=== PATIENT | male | born 1940 | race Caucasian/White ===

== ENCOUNTER → 2017-07-19 | Outpatient (CLI) | payer BC ==
[~2017-07-19] MED LIST: ASPI-515 PO; CARV-39 PO; CARV12.52 PO; CHOL100011 PO; CLOP75TA PO; DILT30TA33 PO; FENO54TA17 PO; HYDR-3307 PO; ISOS20TA3 PO; ISOS30TA8 PO; LOVA40TA2 PO; NITR0.4T SL
== END | disposition home or self-care (01) ==
LOC: CFH 14:20
PROVIDERS: ATTEND Internal Medicine Nephrology
DX: Z02.9 Encounter for administrative examinations, unspecified (principal)

== ENCOUNTER 2018-10-08 10:21 | Inpatient (IN) | payer BC ==
[~2018-10-08] VITALS: Ht 180.3 cm; Wt 79.6 kg
[2018-10-08 11:52] LABS: BASOPHILS # (AUTO) 0.02 x10^3/uL (0-0.1); BASOPHILS % (AUTO) 0 % (0-1); EOSINOPHILS # (AUTO) 0.08 x10^3/uL (0-0.4); EOSINOPHILS % (AUTO) 1 % (1-7); LYMPHOCYTES # (AUTO) 1.12 x10^3/uL (1-3.4); LYMPHOCYTES % (AUTO) 13 % (22-44); MD NO; MEAN CORPUSCULAR HEMOGLOBIN 31.2 pg (27.5-34.5); MEAN CORPUSCULAR HGB CONC 33.6 g/dL (33.2-36.2); MEAN CORPUSCULAR VOLUME 92.7 fL (81-97); MEAN PLATELET VOLUME 8.5 fL (7.4-10.4); MONOCYTES # (AUTO) 0.65 x10^3/uL (0.2-0.8); MONOCYTES % (AUTO) 8 % (2-9); NEUTROPHILS # (AUTO) 6.77 x10^3/uL (1.8-6.8); NEUTROPHILS % (AUTO) 78 % (42-75); PLATELET COUNT 184 x10^3/uL (130-400); RED BLOOD COUNT 4.57 x10^6/uL (4.38-5.82); RED CELL DISTRIBUTION WIDTH 13.6 % (9.4-14.8)
[2018-10-08 12:03] LABS: ALANINE AMINOTRANSFERASE 25 U/L (12-78); ALBUMIN 3.7 g/dL (3.4-5.0); ANION GAP 7 mmol/L (5-15); CALCIUM 9.3 mg/dL (8.5-10.1); CHLORIDE 107 mmol/L (98-107); CREATININE 2.05 mg/dL (0.7-1.3)
[2018-10-08 12:07] LABS: ALKALINE PHOSPHATASE 56 U/L (45-117); BILIRUBIN,TOTAL 0.9 mg/dL (0.2-1.0); TOTAL PROTEIN 7.3 g/dL (6.4-8.2); TROPONIN I < 0.015 ng/mL (0.000-0.045)
[2018-10-08] MEDS ORDERED: KETOROLAC 30 MG/1 ML IM ONE ×2 (12:30)
[2018-10-08] MEDS ORDERED: KETOROLAC 30 MG/1 ML ONE (12:34)
[2018-10-08] MEDS ORDERED: HEPARIN 5,000 UNITS/ML, 1ML ONE (15:18)
[2018-10-08] MEDS ORDERED: HEPARIN 25,000 UNITS/500ML PMX 500 ML ONE (15:19)
[2018-10-08] MEDS ORDERED: HEPARIN 5,000 UNITS/ML, 1ML IV PRN (15:30)
[2018-10-08] MEDS ORDERED: HEPARIN 25,000 UNITS/500ML PMX 500 ML IV PRN (15:30)
[2018-10-08] MEDS ORDERED: HEPARIN 5,000 UNITS/ML, 1ML IV ONE (15:30)
[2018-10-08] MEDS ORDERED: SODIUM CHLORIDE 0.9% 1,000 ML IV SCH (16:02)
[2018-10-08] MEDS ORDERED: OXYcodone IR 5MG TABLET PO PRN (16:30)
[2018-10-08] MEDS ORDERED: GUAIFENESIN/COD200MG-20MG/10ML LIQUID PO PRN (16:30)
[2018-10-08] MEDS ORDERED: ACETAMINOPHEN 325 MG TABLET PO PRN (16:30)
[2018-10-08] MEDS ORDERED: NITROGLYCERIN 0.4 MG BOTTLE (25 TABS) SL PRN (16:30)
[2018-10-08] MEDS ORDERED: morphine SULFATE 10 MG/ML, 1ML IVPush PRN (16:30)
[2018-10-08] MEDS ORDERED: POLYETHYLENE GLYCOL 17 GM PACKET PO PRN (16:30)
[2018-10-08] MEDS ORDERED: ONDANSETRON 2MG/ML, 2ML IVPush PRN (16:30)
[2018-10-08] MEDS ORDERED: DOCUSATE 100 MG CAPSULE PO PRN (16:30)
[2018-10-08 16:46] VITALS: BP 158/81
[2018-10-08 19:45] VITALS: BP 132/75
[2018-10-08 19:57] VITALS: BP 134/69
[2018-10-08] MEDS: FAMOTIDINE 20 MG TABLET PO SCH (20:02)
[2018-10-08] MEDS: CARVEDILOL 12.5 MG TABLET PO SCH (20:04)
[2018-10-08] MEDS: IBUPROFEN 600 MG TABLET PO SCH (20:06)
[2018-10-08] MEDS ORDERED: FENOFIBRATE 54 MG TABLET PO SCH (21:00)
[2018-10-08] MEDS ORDERED: ASPIRIN 81 MG TABLET EC PO SCH (21:00)
[2018-10-08] MEDS ORDERED: CLOPIDOGREL 75 MG TABLET PO SCH (21:00)
[2018-10-08] MEDS ORDERED: LOVASTATIN 40 MG TABLET PO SCH (21:00)
[2018-10-09 02:00] VITALS: BP 120/60
[2018-10-09 04:04] LABS: ANION GAP 8 mmol/L (5-15); CALCIUM 8.6 mg/dL (8.5-10.1); CHLORIDE 109 mmol/L (98-107); CREATININE 1.91 mg/dL (0.7-1.3)
[2018-10-09 06:26] VITALS: BP 131/67
[2018-10-09] MEDS: CARVEDILOL 12.5 MG TABLET PO SCH (08:57)
[2018-10-09] MEDS: FAMOTIDINE 20 MG TABLET PO SCH (08:57)
[2018-10-09] MEDS: IBUPROFEN 600 MG TABLET PO SCH (08:59)
[2018-10-09] MEDS ORDERED: SENNA/DOCUSATE TABLET PO SCH (09:00)
[2018-10-09] MEDS ORDERED: ISOSORBIDE MONONITRATE ER 30 MG TABLET PO SCH (09:00)
[2018-10-09 12:14] VITALS: BP 107/60
[2018-10-09] MEDS ORDERED: APIX5TAB PO (12:39)
[2018-10-09] MEDS ORDERED: IBUP-1222 PO (12:40)
[2018-10-10] MEDS ORDERED: FAMOTIDINE 20 MG TABLET PO SCH (09:00)
== END 2018-10-09 15:07 | disposition home or self-care (01) | DRG 175 ==
LOC: ED 12:24 → EDIP 15:04 → 4EST 16:42 → DCLOUNGE 10-09 15:07
PROVIDERS: ADMIT Emergency Medicine; ATTEND Family Medicine
DX: I26.99 Other pulmonary embolism without acute cor pulmonale (principal); N17.0 Acute kidney failure with tubular necrosis; N18.9 Chronic kidney disease, unspecified; I25.10 Atherosclerotic heart disease of native coronary artery without angina pectoris; Z66 Do not resuscitate; F17.200 Nicotine dependence, unspecified, uncomplicated; I12.9 Hypertensive chronic kidney disease with stage 1 through stage 4 chronic kidney disease, or unspecified chronic kidney disease; E78.5 Hyperlipidemia, unspecified; Z95.1 Presence of aortocoronary bypass graft; Z86.73 Personal history of transient ischemic attack (TIA), and cerebral infarction without residual deficits; Z90.89 Acquired absence of other organs; Z90.49 Acquired absence of other specified parts of digestive tract
CPT/HCPCS: 36415; 71045; 78582; 80048; 80053; 83735; 84484; 85025; 85520; 87081; 87880; 93005; 93970; 96365; G0378; J1644; J1885; A9540; A9558; C9898; J7030

== ENCOUNTER → 2020-05-25 | Outpatient (CLI) | payer BC ==
[~2020-05-25] MED LIST changes: +APIX5TAB PO; +HYDR-3246 PO; -HYDR-3307 PO; +IBUP-1222 PO; -NITR0.4T SL; +NITR0.4T41 SL
== END | disposition home or self-care (01) ==
LOC: RAD 13:15
PROVIDERS: ATTEND Nurse Practitioner Primary Care
DX: Z13.220 Encounter for screening for lipoid disorders (principal); M47.817 Spondylosis without myelopathy or radiculopathy, lumbosacral region; M54.5 Low back pain; M25.50 Pain in unspecified joint; I10 Essential (primary) hypertension; E55.9 Vitamin D deficiency, unspecified; E78.2 Mixed hyperlipidemia; E88.81 Metabolic syndrome and other insulin resistance; N28.9 Disorder of kidney and ureter, unspecified; R31.9 Hematuria, unspecified; E03.9 Hypothyroidism, unspecified; Z79.899 Other long term (current) drug therapy
CPT/HCPCS: 72110